=== PATIENT | male | born 2000 | race Caucasian/White ===

== ENCOUNTER 2022-09-04 14:30 | Outpatient (RCR) | payer OTHER, SELFPAY | END 2022-11-13 10:32 | disposition home or self-care (01) | DX: Z98.890 Other specified postprocedural states (principal); Z51.89 Encounter for other specified aftercare | CPT/HCPCS: 97110; 97140; 97161 ==

== ENCOUNTER 2025-04-05 17:43 | Emergency (ER) | payer SELFPAY ==
--- OUTSIDE RECORDS SUMMARY | 2025-04-05 17:45 | XMS_ITS | Referral Summary ---
Author Organization [facility] Address [address] [place] [address] Care Team Providers Care Telephone Betting Clerk Name Role Phone Denver Beavers MD Primary Care Provider [phone] Allergies Active Allergy Reactions Criticality Noted Date Comments No Known Drug Allergies 05/09/2017 Medications No known medications Active Problems Problem Noted Date Diagnosed Date Adolescent idiopathic scoliosis of lumbosacral s pine 07/23/2019 Forearm fractures, both bone s, closed, right, initial encounter 11/25/2017 Apophysitis of iliac crest 05/09/2017 Social History Tobacco Use Types Packs/Day Years Used Date Smoking Tobacco: Never Smokeless Tobacco: Never Sex and Gender Information Value Date Recorded Sex Assigned at Not on file Legal Sex Male 2:41 AM EDT Gender Identity Male 11/21/2017 12:00 AM EST Sexual Orientation Not on file Last Filed Vital Signs Vital Sign Reading Time Taken Comments Blood Pressure 128/79 10/30/2020 10:07 AM EST Pulse 64 10/30/2020 10:07 AM EST Temperature 36.3 C (97.3 F) 10/30/2020 10:07 AM EST Respiratory Rate 16 10/30/2020 10:07 AM EST Oxygen Saturation 100% 10/30/2020 10:07 AM EST Inhaled Oxygen Concentration - - Weight 72.6 kg (160 lb) 10/30/2020 10:07 AM EST Height - - Body Mass Index - - Plan of Treatment Not on file Insurance Member Subscriber Plan / Payer ( fective 2020-Present) Name:SesarStu Oswald Relation to Subscriber:Child Name:RASHMI ROSADO Date of :1957 (Home) Address: [address] [place] [address] Payer ID:[id number] (NA) Type:PPO Address: [address] Care Teams Telephone Betting Clerk Relationship Specialty Start Date End Date Denver Beavers MD [address] [place] [id number] PCP - General Pediatrics 11/20/17
--- OUTSIDE RECORDS SUMMARY | 2025-04-05 17:45 | XMS_ITS | Data Portability ---
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 The patient a few months later had a second dislocation which she was able to self reduce. The patient has done a course of physical therapy in [place] to work on rotator cuff strengthening but he remains symptomatic. He has a positive apprehension test today. He has already had an MRI which demonstrates a Bankart lesion as well as a small Hill-Sachs. As the patient remains symptomatic and has apprehension with apprehension testing with a Bankart lesion, is my recommendation he undergo a right arthroscopic Bankart repair. I do not suspect the patient will require a Remplissage procedure but that decision will be made intraoperatively. If the patient would like to proceed with surgery, he can follow-up with us on an as-needed basis. I answered all the patient's questions as well as those of his father. Please note that this family lives next to my father outside [place], [place]. [email or web address] Not available 05/03/2022 12:02:01 06/05/2022 06/05/2022 The patient presents today for repeat evaluation of his right shoulder. 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 During soccer season the patient sustained a fall resulting in a traumatic anterior dislocation which required formal reduction in the emergency department. Since that time he has had several episodes of subluxations as well as recurrent dislocations which she was able to self reduce. An MRI demonstrates a Bankart lesion as well as a small Hill-Sachs. Due to the patient's recurrent instability despite conservative care he has decided that he would like to proceed with surgery. He is accompanied by his father today. 1. I had a thorough and lengthy discussion with the patient regarding the nature of surgery. We discussed the risks and benefits in extensive detail. No guarantees were made as to the outcome of surgery. All of the patient's questions were answered. 2. The patient will follow-up 7-10 days status-post surgery for a repeat evaluation. Not available 06/05/2022 09:49:07 06/22/2022 06/22/2022 The patient presents today for his first postoperative visit status post right shoulder Bankart repair including extensive debridement; date of surgery 06/13/2022. He is doing well and improving regarding pain. He states compliance with use of sling. He denies any numbness or paresthesias. The patient is leaving in 2-1/2 weeks to return to school up [place]. 1. New steri-strips were placed over the well healing incisions. 2. The pt was advised to please remain in the sling for the next 4 weeks until returning for a repeat evaluation. 3. We discussed the post-operative protocol in great detail. As of now there will be gentle passive and active ROM of the wrist and elbow only. Upon return in 4 weeks we will begin a formal PT program. Weeks 4-8 will be centered around PROM only. We will wean from the sling weeks 6-8 to begin gentle AROM. 4. The pt will f/u with Dr. Swanson prior to returning to school. 5. All of the pt's questions were answered today. Not available 06/23/2022 15:19:41 07/03/2022 07/03/2022 The patient returns today for a repeat evaluation. He is now approximately 3 weeks status post right arthroscopic Bankart repair. He is clinically doing outstanding. He has no sense of instability. He can easily forward flex to 150 degrees and has a negative apprehension test. I would like him to remain in a sling for an additional week. We will fax the patient's physical therapy order and PT protocol to his therapist in [place]. This will also be sent to his physical trainer. The patient will follow up with us in September when he returns for Thanksgiving break. He will call us if he has any problems whatsoever. I answered all the patient's questions as well as those of his father. [email or web address] Not available 07/07/2022 05:59:38 Plan of Treatment Reminders Order Date Submit Date Provider Last Modified By Organization Details Last Modified Time Details Appointments None recorded. Lab None recorded. Referral physical therapist referral - s/p right bankart repair, ext max DOS 06/13/2022eva l and treat 2x week for 10 weeks, modalities prnMay beging PT 07/12 or after 2021 022 [email or web address] Not available 09:16:54 physical therapist referral - eval and treat, 2x week for 10 weeks, modalities PRN s/p right bankart repair, ext max DOS 06/13/2022May beging PT 07/12 or after 2021 022 [email or web address] Not available 11:01:52 Procedures None recorded. Surgeries None recorded. Imaging XR, shoulder, 2 or more view 2021 022 [email or web address] 5 In-Office Order, Internal Use Only DO Not Attach Compendium DO Not Attach Compendium, Do Not Delete/merge, [id number] 16:54:14 Medication Orders Percocet 5 mg-325 mg tablet 2021 022 [facility], [address] [place], [address], 14:27:36 Patient TargetsNo targets recorded. Patient Instructions Encounter Date Encounter Id Patient Instructions Last Modified By Organization Details Last Modified Time 04/23/2022 [id number] Medical Decision Making: PROBLEMS: 1 chronic illness w/ exacerbation or progression, Moderate 204 DATA: discussion of mgmt. or test interpretation with external MD, Moderate 204 RISK: decision re: elective surgery without identified pt or procedure risks, Moderate 204 [email or web address] Not available 04/23/2022 13:28:57 Reason for Referral Physical Therapist Referral for Recurrent anterior dislocation of shoulder eval and treat, 2x week for 10 weeks, modalities PRN s/p right bankart repair, ext max DOS 06/13/2022May beging PT 07/12 or after Referring Physician: Francie Rucker, Orthopedic Surgery, Encounter Date: 06/22/2022 Physical Therapist Referral for Recurrent anterior dislocation of shoulder s/p right bankart repair, ext max DOS 06/13/2022eval and treat 2x week for 10 weeks, modalities prnMay beging PT 07/12 or after Referring Physician: Suze Swanson, Orthopedic Surgery, Encounter Date: 07/03/2022 Results Created Date Observation Date Name Description Value Unit Range Abnormal Flag Note LastModifiedBy Organization Detail LastModifiedTime 04/23/20 22 XR, shoul yumiko, 2 or more view No observ ation record ed. [email or web address] In-Office Order Internal Use Only DO Not Attach Compendium DO Not Attach Compendium, Do Not Delete/merge, [id number] 04/23/2022 13:28:24 04/23/20 22 MR, arthr ogram , shoul yumiko No observ ation record ed. Not Available 2021 13:06:18 Result Notes None recorded. Problems Name Problem SNOMED Code Status Onset Date Resolution Date Notes Provider Name and Address Organization Details Recorded Time Recurrent anterior dislocation of shoulder Active 2021 Shantel Bunn [facility], [place] 16:32:21 Problem Notes None recorded. Procedures Surgical History Date Name Laterality Status Provider Name and Address Organization Details Recorded Time 06/13/20 22 ARTHROSCOPY, SHOULDER, SURGICAL, CAPSULORRHAPHY (SURG) completed [facility], [place] 06/20/2022 15:20:02 07/01/20 20 [place] teeth extraction completed Shantel Bunn [facility], [place] 04/23/2022 12:57:33 Imaging Results None recorded. Procedure Notes None recorded. Medical Equipment None Reported. Allergies No known drug allergies Medications Name Sig Start Date Stop Date Status Note LastModified by Organization Details LastModified Time Colace 100 mg capsule Take 1 capsule(s ) EVERY DAY by oral route for constipat ion after surgery. 07/03 completed Not Available Not Available Not Available ondansetron HCl 8 mg tablet Take 1 tablet every 8 hours by oral route for 10 days. 07/03 completed Not Available Not Available Not Available Percocet 5 mg-325 mg tablet Take 1 tablet(s) EVERY 4-6 hours for pain after surgery 07/03 completed Not Available Not Available Not Available Vitals Date Recorded Body height Body mass index (BMI) Percentile per age and sex Body mass index (BMI) Body weight Provider Name and Address Organization Details Last Updated DateTime 04/23/2022 177.8 cm 60 % 23.7 kg/m2 61555.74 g Shantel Bunn [facility], [place] 04/23/2022 13:02:17 Date Recorded Body height Provider Name an d Address Organization Details Last Updated DateTime 06/05/2022 177.8 cm [facility], [place] 06/05/2022 08:58:56 Date Recorded Body height Provider Name an d Address Organization Details Last Updated DateTime 06/22/2022 177.8 cm [facility], [place] 06/22/2022 12:17:12 Date Recorded Body height Provider Name an d Address Organization Details Last Updated DateTime 07/03/2022 177.8 cm Shantel Bunn [facility], [place] 07/03/2022 14:27:28 Social History Question Answer Notes LastModified by Organizat ion Details LastModified Time Tobacco Smoking Status Never Smoker Shantel Bunn [facility], [place] 04/23/2022 12:57:30 Do You Have An Advance Directive? No Information not available 04/23/2022 Which Of Your Hands Is Dominant? Right Information not available 04/23/2022 Auto Related Injury? No Information not available 04/23/2022 Accident Related Injury? Yes Information not available 04/23/2022 Work Related Injury? No Information not available 04/23/2022 Represented By An Vending Machine Operator? No Information not available 04/23/2022 What Was The Date Of Your Most Recent Tobacco Screening? 04/23/2022 Information not available 04/23/2022 Have You Ever Been Counseled For Unhealthy Alcohol Use? Yes Information not available 04/23/2022 What Is Your Relationship Status? Single Information not available 04/23/2022 At What Age Did You Start Smoking Tobacco? 0 Information not available 04/23/2022 How Much Tobacco Do You Smoke? No Information not available 04/23/2022 What Types Of Sporting Activities Do You Participate In? Soccer, Biking, Running Information not available 04/23/2022 Has Tobacco Cessation Counseling Been Provided? No Information not available 04/23/2022 How Many Years Have You Smoked Tobacco? 0 Information not available 04/23/2022 How Many Days In The Past Year Have You Consumed 5 Or More Drinks? 10 Information no t available 04/23/2022 Sex: Unknown Functional Status Question Answer Note LastModified by Organizat ion Details LastModified Time Do you or have you ever used any other forms of tobacco or nicotine? No Information not available 04/23/2022 What is your level of alcohol consumption? Moderate Information not available 04/23/2022 Are you currently employed? Yes Information not available 04/23/2022 Are you able to care for yourself? Yes Information not available 04/23/2022 What is your occupation? [employer] Employee Information not available 04/23/2022 Do you or have you ever used e-cigarettes or vape? Never used electronic cigarettes Information not available 04/23/2022 Mental Status None recorded. Family History Relationship Description Onset Age of this Age Resolved Age Notes LastModified by Organization Details LastModified Time Paternal Grandfather Congestive heart failure Not available 2021 12:57:20 Paternal Grandfather Heart disease Not available 2021 12:57:20 Paternal Grandfather Myocardial infarction Not available 04/23 12:57:20 Father Hypertensive disorder Not available 2021 12:57:20 Maternal Grandfather Parkinson's disease Not available 2021 12:57:20 Medical History Condition Response Asthma Y Immunizations Vaccine Type Date Status Note Provider Nam e and Address Organization Details Recorded Time COVID-19, mRNA, LNP-S, PF, 30 mcg/0.3 mL dose 1 completed Shantel gamble, [facility], [place] 04/23/2022 13:02:32 Influenza, split virus, quadrivalent, preservative 1 [facility] [place] 04/23/[facility]22 13:02:39 Past Encounters Encounter ID Performer Location Encounter Start Date Encounter Closed Date Diagnosis/Indication Diagnosis SNOMED-CT Code Diagnosis ICD10 Code Diagnosis Note [id number] MD [place] [address] [place] [address] 04/23/2022 12:25:23 04/23/2022 16:54:14 Pain of shoulder region 52933816 M25.511 Recurrent anterior dislocation of shoulder 186410665 M24.834 [id number] MD [place] [address] [place] [address] 06/05/2022 08:39:09 06/05/2022 10:57:35 Recurrent anterior dislocation of shoulder 570075921 M24.689 [id number] MD Cristina [place]IREZ [place] [address] [place] [address] 06/22/2022 12:06:55 06/22/2022 14:41:03 Recurrent anterior dislocation of shoulder 540267591 M24.745 [id number] SUZE SWANSON [place] [address] [place] [address] 07/03/2022 14:16:27 07/04/2022 10:24:42 Recurrent anterior dislocation of shoulder 978970866 M24.411 Health Concerns Section Related Observation LastModified by Organization Detai ls LastModified Time None Recorded Concern Status LastModified by Organization Details LastModified Time None Recorded Advance Directives Directive N: Payers Insurance Date Sequence Insurance Name Policy Number Policy [place] Covered Member ID [place] Member ID Guarantor Name 10/16/2022 1 [employer] (POS) [id number] Ema Branham Prim [id number] Stu Michael Prim Notes Date Note Type Note Provider Name and Address Organization Details Recorded Time 04/23/2022 text/html ShoulderReported bypatient.Location:[facility] Quality:aching Duration:date of onset: 09/2021 Timing:acute Alleviating Factors:nothing helps Aggravating Factors:throwing Previous Injections:none 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 Pain with throwing. SUZE SWANSON MD [address] [facility],[address], [place], [address], [facility], [place] 05/03/2022 12:02:08 06/05/2022 text/html F/UReported bypatient.Change in symptoms:no How are you feeling?same ROSY SILVA [address] [facility],[address], [place], [address], [facility], [place] 06/05/2022 09:49:35 06/22/2022 text/html F/UReported bypatient.Change in symptoms:yes How are you feeling?improvingNotes :s/p right bankart repair, ext max DOS 06/13/2022 ROSY SILVA [address] [facility],[address], [place], [address], [facility], [place] 06/23/2022 15:20:07 07/03/2022 text/html F/UReported bypatient.Change in symptoms:yes How are you feeling?improvingNotes :s/p right bankart repair, ext max DOS 06/13/2022 SUZE SWANSON MD [address] [facility],[address], [place], [address], [facility], [place] 07/07/2022 05:59:45
--- OUTSIDE RECORDS SUMMARY | 2025-04-05 17:45 | XMS_ITS | Data Portability ---
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 The patient a few months later had a second dislocation which she was able to self reduce. The patient has done a course of physical therapy in [place] to work on rotator cuff strengthening but [...] family lives next to my father outside [place], [place]. [email or web address] Not available 05/03/2022 12:02:01 06/05/2022 06/05/2022 The patient presents today for repeat evaluation of his right shoulder. 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 During soccer season the patient sustained a [...] 2-1/2 weeks to return to school up [place]. 1. New steri-strips were placed over the [...] PT protocol to his therapist in [place]. This will also be sent to his horse trainer. The patient will follow up with [...] beging PT 07/12 or after 2021 022 Not available 09:16:54 physical therapist referral - [...] DO Not Attach Compendium, Do Not Delete/merge, [id number] 16:54:14 Medication Orders Percocet 5 mg-325 mg tablet 2021 022 [facility], [address] [place], [address], 14:27:36 Patient TargetsNo targets recorded. Patient Instructions Encounter Date Encounter Id Patient Instructions Last Modified By Organization Details Last Modified Time 04/23/2022 [id number] Medical Decision Making: PROBLEMS: 1 chronic illness [...] DO Not Attach Compendium, Do Not Delete/merge, [id number] 04/23/2022 13:28:24 04/23/20 22 MR, arthr ogram , shoul yumiko No observ ation record ed. Not Available 2021 13:06:18 Result Notes None recorded. Problems Name Problem SNOMED Code Status Onset Date Resolution Date Notes Provider Name and Address Organization Details Recorded Time Recurrent anterior dislocation of shoulder Active 2021 Shantel Bunn [facility], [place] 16:32:21 Problem Notes None recorded. Procedures Surgical History Date Name Laterality Status Provider Name and Address Organization Details Recorded Time 06/13/20 22 ARTHROSCOPY, SHOULDER, SURGICAL, CAPSULORRHAPHY (SURG) completed [facility], [place] 06/20/2022 15:20:02 07/01/20 20 [place] teeth extraction completed Shantel Bunn [facility], [place] 04/23/2022 12:57:33 Imaging Results None recorded. Procedure [...] 04/23/2022 177.8 cm 60 % 23.7 kg/m2 84143.74 g Shantel Bunn [facility], [place] 04/23/2022 13:02:17 Date Recorded Body height Provider Name an d Address Organization Details Last Updated DateTime 06/05/2022 177.8 cm [facility], [place] 06/05/2022 08:58:56 Date Recorded Body height Provider Name an d Address Organization Details Last Updated DateTime 06/22/2022 177.8 cm [facility], [place] 06/22/2022 12:17:12 Date Recorded Body height Provider Name an d Address Organization Details Last Updated DateTime 07/03/2022 177.8 cm Shantel Bunn [facility], [place] 07/03/2022 14:27:28 Social History Question Answer Notes LastModified by Organizat ion Details LastModified Time Tobacco Smoking Status Never Smoker Shantel Bunn [facility], [place] 04/23/2022 12:57:30 Do You Have An Advance Directive? No Information not available 04/23/2022 Which Of Your Hands Is Dominant? Right Information not available 04/23/2022 Auto Related Injury? No Information not available 04/23/2022 Accident Related Injury? Yes Information not available 04/23/2022 Work Related Injury? No Information not available 04/23/2022 Represented By An Clinical Immunologist? No Information not available 04/23/2022 What Was [...] not available 04/23/2022 What is your occupation? [employer] Employee Information not available 04/23/2022 Do you [...] mcg/0.3 mL dose 1 completed Shantel gamble, [facility], [place] 04/23/2022 13:02:32 Influenza, split virus, quadrivalent, preservative 1 [facility] [place] 04/23/2022 13:02:39 Past Encounters Encounter ID Performer Location Encounter Start Date Encounter Closed Date Diagnosis/Indication Diagnosis SNOMED-CT Code Diagnosis ICD10 Code Diagnosis Note [id number] MD Crist[place] [address] [place] [address] 04/23/2022 12:25:23 04/23/2022 16:54:14 Pain of shoulder region 50291996 M25.511 Recurrent anterior dislocation of shoulder 085196206 M24.710 [id number] MD Crist[place] [address] [place] [address] 06/05/2022 08:39:09 06/05/2022 10:57:35 Recurrent anterior dislocation of shoulder 506043916 M24.114 [id number] MD [place] [address] [place] [address] 06/22/2022 12:06:55 06/22/2022 14:41:03 Recurrent anterior dislocation of shoulder 240403864 M24.167 [id number] SUZE SWANSON [place] [address] [place] [address] 07/03/2022 14:16:27 07/04/2022 10:24:42 Recurrent anterior dislocation of shoulder 511077578 M24.411 Health Concerns Section Related Observation LastModified by Organization Detai ls LastModified Time None Recorded Concern Status LastModified by Organization Details LastModified Time None Recorded Advance Directives Directive N: Payers Insurance Date Sequence Insurance Name Policy Number Policy [place] Covered Member ID [place] Member ID Guarantor Name 10/16/2022 1 [employer] (POS) [id number] Ema Branham Prim [id number] Stu Michael Prim Notes Date Note Type Note Provider Name and Address Organization Details Recorded Time 04/23/2022 text/html ShoulderReported bypatient.Location:[facility] Quality:aching Duration:date of onset: 09/2021 Timing:acute Alleviating Factors:nothing helps Aggravating Factors:throwing Previous Injections:none 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 Pain with throwing. SUZE SWANSON MD [address] [facility],[address], [place], [address], [facility], [place] 05/03/2022 12:02:08 06/05/2022 text/html F/UReported bypatient.Change in symptoms:no How are you feeling?same ROSY SILVA [address] [facility],[address], [place], [address], [facility], [place] 06/05/2022 09:49:35 06/22/2022 text/html F/UReported bypatient.Change in symptoms:yes How are you feeling?improvingNotes :s/p right bankart repair, ext max DOS 06/13/2022 ROSY SILVA [address] [facility],[address], [place], [address], [facility], [place] 06/23/2022 15:20:07 07/03/2022 text/html F/UReported bypatient.Change in symptoms:yes How are you feeling?improvingNotes :s/p right bankart repair, ext max DOS 06/13/2022 SUZE SWANSON MD [address] [facility],[address], [place], [address], [facility], [place] 07/07/2022 05:59:45
--- OUTSIDE RECORDS SUMMARY | 2025-04-05 17:45 | XMS_ITS | Clinical Summary ---
Author Organization [facility] Address [address] [place] [id number] Care Team Providers Care Engineering Lecturer Name Role Phone Pcp, No Primary Care Provider Unavailabl e Allergies No known active allergies Medications No known medications Active Problems No known active problems Social History Tobacco Use Types Packs/Day Years Used Date Smoking Tobacco: Never Smokeless Tobacco: Never Tobacco Cessation:Counseling Given: Yes Alcohol Use Standard Drinks/Week Comments Yes 0 (1 standard drink = 0.6 oz pur e alcohol) occasionally Social Connections Answer Date Recorded Frequency of Communication with Friends and Fami ly Not on file 02/07/2022 Sex and Gender Information Value Date Recorded Sex Assigned at Not on file Legal Sex Male 11:53 AM CDT Gender Identity Not on file Sexual Orientation Not on file Obstetrics History Last Filed Vital Signs Vital Sign Reading Time Taken Comments Blood Pressure 134/63 02/07/2022 3:33 PM CDT Pulse 69 02/07/2022 3:33 PM CDT Temperature 36.9 C (98.4 F) 02/07/2022 3:33 PM CDT Respiratory Rate - - Oxygen Saturation 97% 02/07/2022 3:33 PM CDT Inhaled Oxygen Concentration - - Weight 77.9 kg (171 lb 12.8 oz) 02/07/2022 3:33 PM CDT Height 177.6 cm (5' 9.92) 02/07/2022 3:33 PM CD T Body Mass Index 24.71 02/07/2022 3:33 PM CDT Plan of Treatment Health Maintenance Due Date Last Done Comments Tdap 2013 Depression screening for age 12+ 2014 HIV for age 15-65 2017 HPV series for age 9-26 (1 - Male 3-dose series) 2017 Hepatitis C screening for ag e 18-79 2020 Tetanus booster 2022 BMI (ht and wt on same day) for age 18+ 02/07/2023 02/07/2022 COVID-19 vaccine series ( - 2023- season) 2024 Influenza Vaccine (Season Ended) 2025 Pneumococcal series for age 6-49 Aged Out No longer eligible based on patient's age to complete this topic Care Teams Engineering Lecturer Relationship Specialty Start Date End Date Pcp, No . PCP - General 01/17/22
--- OUTSIDE RECORDS SUMMARY | 2025-04-05 17:45 | XMS_ITS | Clinical Summary ---
Author Organization [facility] Address [address] [place] [address] Care Team Providers Care Ink Technician Name Role Phone Ivelisse Mark MD Primary Care Provider Allergies No known active allergies Medications No known medications Active Problems Problem Noted Date Diagnosed Date Adolescent idiopathic scoliosis of lumbosacral s pine 07/23/2019 Social History Tobacco Use Types Packs/Day Years Used Date Smoking Tobacco: Never Assessed Sex and Gender Information Value Date Recorded Sex Assigned at Not on file Legal Sex Male 9:56 AM EDT Gender Identity Not on file Sexual Orientation Not on file Last Filed Vital Signs Vital Sign Reading Time Taken Comments Blood Pressure - - Pulse - - Temperature 37.1 C (98.8 F) 11/24/2019 1:11 PM EST Respiratory Rate - - Oxygen Saturation - - Inhaled Oxygen Concentration - - Weight 74.4 kg (164 lb) 11/24/2019 1:11 PM EST Height 178.9 cm (5' 10.43) 11/24/2019 1:[address] Body Mass Index 23.24 11/24/2019 1:11 PM EST Plan of Treatment Health Maintenance Due Date Last Done Comments COVID-19 Vaccine ( season) 2024 01/27/2021 Pneumococcal Vaccine (Combined) Aged Out 07/14/2003, 04/07/2003, 2002, Additional history exists No longer eligible based on patient's age to complete this topic Insurance BLUE CHOICE PPO Care Teams Ink Technician Relationship Specialty Start Date End Date Ivelisse Mark MD [address] [place] [address] PCP - General Pediatrics 07/20/19
--- OUTSIDE RECORDS SUMMARY | 2025-04-05 17:45 | XMS_ITS | Clinical Summary ---
Author Organization [facility] Address [address] [place] [id number] Care Team Providers Care Archery Instructor Name Role Phone Denver Beavers MD Primary Care Provider [phone] Allergies Active Allergy Reactions Criticality Noted Date [...] Mass Index - - Plan of Treatment Health Maintenance Due Date Last Done Comments HIV Screening 2002 Hepatitis C Screening 2002 Annual Visit Non Medicare 2005 Annual Visit 2005 Alcohol Screening 2013 Depression Screening 2014 DTaP,Tdap,and Td Vaccines (7 - Td or Tdap) 04/30/2024 04/30/2014, 07/21/2007, 10/15/2003, Additional history exists COVID-19 Vaccine ( season) 2024 10/30/2021, 01/27/2021 Influenza Vaccine (#1) 2024 , 10/14/2019, 08/26/2014, Additional history exists HIB Vaccines Completed 07/14/2003, 04/2003, 2002 Hepatitis B Vaccines Completed 07/14/2003, 2002, 2002, Additional history exists Pneumococcal Vaccine Aged Out 07/14/2003, 04/07/2003, 2002, Additional history exists No longer eligible based on patient's age to complete this topic IPV Vaccines Completed 07/21/2007, 03/2003, 2002, Additional history exists MMR Vaccines Completed 07/21/2007, 10/15/2003 Varicella Vaccines Completed 07/21/2008, 07/14/2003 Hepatitis A Vaccines Completed 04/30/2014, 07/21/20 07 Meningococcal Vaccine Completed 06/04/2019, 014 HPV Vaccines Completed 12/08/2019, 07/13, 06/04/2019 Insurance Member Subscriber Plan / Payer (Ef fective 2020-Present) Name:Stu Rosado Relation to Subscriber:Child Name:RASHMI ROSADO Date of :1959 (Home) Address: [address] [place] [address] Payer ID:[id number] (NAIC) Type:PPO Address: [id number] [place] [address] [facility] Member Subscriber Plan / Payer (Ef fective 2020-Present) Name:Stu Rosado Relation to Subscriber:Child Name:RASHMI ROSADO Date of :1957 (Home) Address: [address] [place] [address] Payer ID:[id number] (NAIC) Type:PPO Address: [facility] [id number] [place] [id number] Care Teams Archery Instructor Relationship Specialty Start Date End Date Denver Beavers MD [address] [place] [address] PCP - General Pediatrics 11/20/17
[2025-04-05 17:48] VITALS: BP 143/73; PULSE 95; RESP 18; TEMP 37.1; O2SAT 96; BMI 23.0
--- NOTE | 2025-04-05 18:06 | ED_ITS ---
History of Present Illness General Time Seen by Provider: 18:06 Date Seen: 04/05/25 Chief Complaint: Epistaxis/Nosebleed Stated Complaint: Elbowed in nose, bleeding Time Seen by Provider: 04/05/25 18:05 Source: patient and RN notes reviewed Mode of arrival: ambulatory Limitations: no limitations History of Present Illness HPI Narrative: This 24-year-old male is coming in with a nose bleed after being hit in the nose. 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 His nose started bleeding immediately coming he states it has not stopped despite pressure. He denies any visual changes, no loss of consciousness, no headache. No neck pain. He has no jaw pain, feels like his teeth or occluding normally. He states his tetanus is up-to-date. Related Data Home Medications ?Medication ?Instructions ?Recorded ?Confirmed No Known Home Medications 04/05/2503/12 Allergies Allergy/AdvReac Type Severity Reaction Status Date / Time No Known Drug Allergies Allergy Verified 04/05/25 17:51 Review of Systems Narrative: As per HPI. PFSH [facility] Social History Smoking Status: Never smoker Do you use any of these nicotine containing products: None How often do you have a drink containing alcohol: 2-4 times a month AUDIT-C Alcohol total score: 2 Non-prescribed substance use: marijuana (any form) Exam Const: Vital Signs, click to edit/add: Vital Signs - 24 hr 04/05/25 17:48 Temperature 98.7 F Pulse Rate [Right Pulse Oximeter] 95 Respiratory Rate 18 Blood Pressure [Ri ght Upper Arm] 143/73 H Pulse Oximetry 96 Oxygen Delivery Me thod Room Air This patient is alert, interactive, no apparent distress. He has some dried speckled blood in the front of his shirt, dried blood over the front of his face. He was holding his nose with gauze, this was removed. He has some visible clot in both sides but no active bleeding. The bridge of his nose is swollen, ecchymotic but no external skin opening. Pupils are equal round reactive, sclera clear, extraocular muscles intact. Oropharynx with normal mucosa, no exudates or erythema. Feels like his teeth occlude normally, note no traumatic change. Has wax in both canals, cannot see tympanic membranes. No midline tenderness of his neck, no pain with range of motion of his neck. Documenting provider has reviewed patient's vital signs: yes Course Course ED Course: Patient has some residual clot in both anterior nares. Have given him some Kleenex but there has been no active bleeding while I have been in there. Have reviewed with him for imaging of nasal fractures, facial CT bone imaging is standard of care. We will proceed in obtaining this. Reevaluation(s) Time of Reevaluation #1: 19:17 Reevaluation #1: Have reviewed with patient his CT findings. There is a minimally displaced left nasal fracture. He is wondering about the swelling in his nose. We reviewed that that is from the trauma and will resolve with time. Whether not there is going to be a visible deformity from the nasal fracture will have to wait until the swelling has resolved. We discussed that it is imperative for him to follow-up with ENT. Will give him the phone number for the ENT here per his request. 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 He has had no further bleeding. Do not visualize any septal hematoma, little dried blood on the outer portion of his left nares but no significant clots remain. Vital Signs Vital signs: Initial Vital Signs Temperature 98.7 F 04/05/25 17:48 Temperature Source Temporal Artery Scan 04/05/25 17:48 Pulse Rate 95 04/05/25 17:48 Pulse Rhythm Regular 04/05/25 17:48 Pulse Strength 3+ Normal 04/05/25 17:48 Respiratory Rate 18 04/05/25 17:48 Blood Pressure 143/73 H 04/05/25 17:48 Blood Pressure Mean 96 04/05/25 17:48 Blood Pressure Position Sitting 04/05/25 17:48 Pulse Oximetry 96 04/05/25 17:48 Oxygen Delivery Method Room Air 04/05/25 17:48 Vital Signs Temperature 98.7 F 04/05/25 17:48 Pulse Rate 95 04/05/25 17:48 Respiratory Rate 18 04/05/25 17:48 Blood Pressure 143/73 H 04/05/25 17:48 Pulse Oximetry 96 04/05/25 17:48 Oxygen Delivery Method Room Air 04/05/25 17:48 Temperature 98.7 F 04/05/25 17:48 Pulse Rate 95 04/05/25 17:48 Respiratory Rate 18 04/05/25 17:48 Blood Pressure 143/73 H 04/05/25 17:48 Pulse Oximetry 96 04/05/25 17:48 Oxygen Delivery Method Room Air 04/05/25 17:48 MDM - Epistaxis Imaging Data CT- Other: Attestation: I have reviewed the pertinent imaging results. Radiologist's impression: Patient: ARNOLD ROSADO Facility:?[facility] Patient ID:?[id number] Site Patient ID:?[id number]. Site :?[id number] Study:?CT-Facial WO-04/05/2025 6:28:49 PM Ordering Physician:Catie Damon Final Report: Indication: Nasal trauma. Technique: Noncontrast CT of the facial bones with multiplanar reconstruction utilizing bone and soft tissue algorithms. Comparison: None available. Findings: Minimally displaced left nasal bone fracture (series 4, image 9). Rightward deviation of the nasal septum. Symmetric globes without evidence of penetrating injury. Mild mucosal thickening within the maxillary and ethmoid sinuses. The imaged intracranial structures appear within normal limits. Impression: Minimally displaced left nasal bone fracture. Please note that all CT scans at this facility use dose modulation, iterative reconstruction, and/or weight-based dosing when appropriate to reduce radiation dose to as low as reasonably achievable. Dictated by Truman Hayes MD @ 04/05/2025 6:57:51 PM (Electronic Signature) Discharge Plan Discharge Clinical Impression: Epistaxis Fracture of nasal bone Qualifiers: Encounter type: initial encounter Fracture type: closed Qualified Code(s): S02.2XXA - Fracture of nasal bones, initial encounter for closed fracture Patient Disposition: Home, Self-Care Condition: Stable Instructions: Nasal Fracture (ED), Nosebleed (ED) Additional Instructions: Trying to sleep with your head elevated as much as you are able to for the next few nights can help decrease swelling. Can apply ice packs on the bridge of her nose to help decrease swelling. It is fine to use Tylenol or ibuprofen per bottle directions if needed for discomfort. You will need to follow-up with ENT. Call [facility] whom schedules for our ENT Dr. Meier, . Let them know that you are college student and prefer to be seen in [place]. Avoid further facial trauma as best you can. Activity Level: Activity as Tolerated Prescriptions: No Action No Known Home Medications Follow Up/Referrals: Provider,Not a Local [Primary Care Provider, Family Practice] Stand Alone Forms: [employer] Info Instructions
--- NOTE | 2025-04-05 18:10 | CRLHL7_ITS ---
For Patients: As a result of the Century Cures Act, medical imaging exams and procedure reports are released immediately into your electronic medical record. You may view this report before your referring provider. If you have questions, please contact your health care provider. Indication: Nasal trauma. Technique: Noncontrast CT of the facial bones with multiplanar reconstruction utilizing bone and soft tissue algorithms. Comparison: None available. Findings: Minimally displaced left nasal bone fracture (series 4, image 9). Rightward deviation of the nasal septum. Symmetric globes without evidence of penetrating injury. Mild mucosal thickening within the maxillary and ethmoid sinuses. The imaged intracranial structures appear within normal limits. Impression: Minimally displaced left nasal bone fracture. Please note that all CT scans at this facility use dose modulation, iterative reconstruction, and/or weight-based dosing when appropriate to reduce radiation dose to as low as reasonably achievable. Dictated by Truman Hayes MD @ 04/05/2025 6:57:51 PM (Electronically Signed)
== END 2025-04-05 19:33 | disposition home or self-care (01) ==
PROVIDERS: Emergency Provider Family Medicine
DX: S02.2XXA Fracture of nasal bones, initial encounter for closed fracture (principal); R04.0 Epistaxis; W50.0XXA Accidental hit or strike by another person, initial encounter; Y93.66 Activity, soccer
CPT/HCPCS: 70486; 99283; 99284